=== PATIENT | male | born 1955 | race Caucasian/White ===

== ENCOUNTER 2019-03-21 09:17 | Emergency (ER) | payer MEDICARE, BC ==
[~2019-03-21] VITALS: Ht 182.9 cm; Wt 81.0 kg
[2019-03-21 10:35] VITALS: BP 115/70
== END 2019-03-21 10:37 | disposition home or self-care (01) ==
LOC: ER 09:17
DX: S62.397A Other fracture of fifth metacarpal bone, left hand, initial encounter for closed fracture (principal); Z98.890 Other specified postprocedural states; V19.88XA Pedal cyclist (driver) (passenger) injured in other specified transport accidents, initial encounter; Y93.55 Activity, bike riding; Y92.413 State road as the place of occurrence of the external cause; Y99.9 Unspecified external cause status
CPT/HCPCS: 29125; 73130; 99283

== ENCOUNTER 2023-02-16 23:54 | Emergency (ER) | payer MEDICARE, BC ==
[~2023-02-16] VITALS: Ht 182.9 cm; Wt 81.8 kg
[2023-02-17 00:45] VITALS: BP 123/70; PULSE 63; RESP 14; TEMP 98.3; O2SAT 99
[2023-02-17] MEDS ORDERED: ondansetron 4mg rapidly disintigrating tab PO ONE (03:10)
[2023-02-17] MEDS ORDERED: HYDROmorphone 1 mg/ml syringe IM ONE (03:10)
[2023-02-17] MEDS ORDERED: HYDR-3965 PO ×2 (14:44→16:56)
== END 2023-02-17 04:07 | disposition home or self-care (01) ==
LOC: ER 23:55
DX: M79.605 Pain in left leg (principal)
CPT/HCPCS: 73552; 96372; 99283; J1170; A6449